=== PATIENT | female | born 1945 | race Caucasian/White ===

== ENCOUNTER → 2018-04-01 | Outpatient (CLI) | payer MEDICARE, OTHER ==
--- NOTE | 2018-04-05 11:21 | MM ---
Reason for exam: screening (asymptomatic). Last mammogram was performed 3 years and 4 months ago. History: Patient is postmenopausal and has history of other cancer at age 63. Took estrogen for 10 years. Physical Findings: A clinical breast exam by your physician is recommended on an annual basis and results should be correlated with mammographic findings. MG 3D Screening Mammo W/Cad Bilateral CC and MLO view(s) were taken. Prior study comparison: November 22, 2014, bilateral MG screening mammo w CAD. October 13, 2013, bilateral digital screening mammo w/CAD. There are scattered fibroglandular densities. Finding #1: There is a typically benign circumscribed round retroareolar stable masses. Finding #2: There are typically benign calcifications in both breasts, greater in the right breast. No suspicious abnormality. No significant changes in finding since November 22, 2014 and October 13, 2013. ASSESSMENT: Benign, BI-RAD 2 RECOMMENDATION: Routine screening mammogram of both breasts in 1 year.
== END | disposition home or self-care (01) ==
LOC: RADMAMWWP 13:09
PROVIDERS: ATTEND Family Medicine
DX: Z12.31 Encounter for screening mammogram for malignant neoplasm of breast (principal)
CPT/HCPCS: 77063; 77067

== ENCOUNTER 2021-07-02 10:15 | Day surgery (SDC) | payer MEDICARE, OTHER ==
[2021-06-28 11:09] VITALS: BMI 27.4
[~2021-07-02 10:15] MED LIST: LACTATED RINGERS 1,000 ML IV SCH; LIDOCAINE 1% (10MG/ML) FOR IV START INTRADERMA PRN
[2021-07-02 10:53] VITALS: RESP 16; TEMP 98
[2021-07-02] MEDS ORDERED: PROPOFOL 10 MG/ML 20 ML VIAL IV ONE (11:04)
--- NOTE | 2021-07-02 11:08 | P.GSHP ---
History of Present Illness H&P Date: 07/02/21 Chief Complaint: Rectal bleeding 76-year-old female here today for colonoscopy. 2 months ago patient had episode of gastroenteritis symptoms with rectal bleeding. Symptoms lasted for about 4 days. No recurrent symptoms. Last colonoscopy 6 years ago. Small hyperplastic polyp seen at that time. Family history of colon cancer in a cousin and uncle. Past Medical History Past Medical History: Cancer, GI Bleed, Hyperlipidemia, Hypertension Additional Past Medical History / Comment(s): squamous skin cancer History of Any Multi-Drug Resistant Organisms: None Reported Additional Past Surgical History / Comment(s): fallopian surgery, colonoscopy Past Anesthesia/Blood Transfusion Reactions: No Reported Reaction Smoking Status: Never smoker Medications and Allergies Home Medications Medication Instructions Recorded Confirmed Type Cholecalciferol (Vitamin D3) 125 mcg PO SUTUTHSA 06/28/21 07/02/21 History [Vitamin D3 (125 MCG = 5,000 IU)] Cholecalciferol [Vitamin D3 (25 25 mcg PO MOWEFR 06/28/21 07/02/21 History Mcg = 1000 Iu)] Losartan/Hydrochlorothiazide 1 tab PO DAILY 06/28/21 07/02/21 History [Losartan-Hctz 100-25 mg Tab] Metoprolol Succinate (ER) [Toprol 50 mg PO HS 06/28/21 07/02/21 History Xl] Simvastatin [Zocor] 40 mg PO HS 06/28/21 07/02/21 History Allergies Allergy/AdvReac Type Severity Reaction Status Date / Time No Known Allergies Allergy Verified 06/28/21 10:45 Surgical - Exam Vital Signs Temp Pulse Resp BP Pulse Ox 98.0 F 98 16 188/84 97 07/02/21 10:43 07/02/21 10:43 07/02/21 10:43 07/02/21 10:43 07/02/21 10:43 Physical exam: General: Well-developed, well-nourished HEENT: Normocephalic, sclerae nonicteric Abdomen: Nontender, nondistended Extremities: No edema Neuro: Alert and oriented Assessment and Plan (1) Rectal bleeding Narrative/Plan: Will proceed with colonoscopy Current Visit: Yes Status: Acute Code(s): K62.5 - HEMORRHAGE OF ANUS AND RECTUM SNOMED Code(s): 32552407
--- NOTE | 2021-07-02 11:18 | P.PCN ---
Date of Procedure: 07/02/21 Procedure(s) Performed: PREOPERATIVE DIAGNOSIS: Rectal bleeding POSTOPERATIVE DIAGNOSIS: Cecal polyp 2 PROCEDURE: Colonoscopy with snare polypectomy ANESTHESIA: MAC SURGEON: Cj Mckeon M.D. SPECIMENS: Cecal polyps ENDOSCOPIC PROCEDURE: The patient was placed on the endoscopy table in the left decubitus position. The Olympus colonoscope was inserted into the anus and passed under direct visualization to the base of the cecum. The appendiceal orifice was visualized. From that point the scope was slowly withdrawn inspecting all surfaces carefully. There were 2 small polyps at the base of the cecum. These were removed using the snare with cautery technique. The remainder of the cecum, ascending, transverse, descending, sigmoid and rectum appeared normal. There was no visible diverticulosis noted. Digital rectal examination was normal. The patient was taken to the recovery room in stable condition per anesthesia guidelines. RECOMMENDATIONS: Resume diet. Await biopsy results. Follow colonoscopy pending pathology results.
[2021-07-02 11:25] VITALS: PULSE 75
[2021-07-02 11:39] VITALS: BP 144/76
== END 2021-07-02 12:15 | disposition home or self-care (01) ==
LOC: ORWHC2ENDO 10:15
PROVIDERS: ATTEND Surgery
DX: K63.5 Polyp of colon (principal); K62.5 Hemorrhage of anus and rectum; E78.5 Hyperlipidemia, unspecified; I10 Essential (primary) hypertension; F41.9 Anxiety disorder, unspecified; Z79.899 Other long term (current) drug therapy; Z85.828 Personal history of other malignant neoplasm of skin; Z87.2 Personal history of diseases of the skin and subcutaneous tissue; Z80.0 Family history of malignant neoplasm of digestive organs
CPT/HCPCS: 88305; 45385; J2704

== ENCOUNTER → 2021-11-28 | Outpatient (CLI) | payer MEDICARE, OTHER ==
--- NOTE | 2021-11-29 09:12 | MM ---
Reason for exam: screening (asymptomatic). Last mammogram was performed 3 years and 8 months ago. History: Patient is postmenopausal and has history of other cancer at age 63. Took estrogen for 10 years. Physical Findings: A clinical breast exam by your physician is recommended on an annual basis and results should be correlated with mammographic findings. MG 3D Screening Mammo W/Cad Bilateral CC and MLO view(s) were taken. Prior study comparison: April 01, 2018, bilateral MG 3d screening mammo w/cad. November 22, 2014, bilateral MG screening mammo w CAD. There are scattered fibroglandular densities. Focal asymmetry upper outer left breast zone C. ASSESSMENT: Incomplete: need additional imaging evaluation, BI-RAD 0 RECOMMENDATION: Special view mammogram of the left breast. If lesion persists on supplemental views, image directed ultrasound is recommended. [facility] will attempt to contact patient to return for supplemental views and ultrasound if indicated.
== END | disposition home or self-care (01) ==
LOC: RADMAMWWP 14:32
PROVIDERS: ATTEND Family Medicine
DX: Z12.31 Encounter for screening mammogram for malignant neoplasm of breast (principal); Z78.0 Asymptomatic menopausal state
CPT/HCPCS: 77063; 77067

== ENCOUNTER → 2021-12-04 | Outpatient (CLI) | payer MEDICARE, OTHER ==
--- NOTE | 2021-12-04 13:46 | MM ---
Reason for exam: additional evaluation requested from abnormal screening. Last mammogram was performed less than 1 month ago. History: Patient is postmenopausal and has history of other cancer at age 63. Took estrogen for 10 years. Physical Findings: Nurse did not find any significant physical abnormalities on exam. MG 3D Work Up W/Cad LT Spot compression CC, spot compression MLO, and LM view(s) were taken of the left breast. Prior study comparison: November 28, 2021, bilateral MG 3d screening mammo w/cad. April 01, 2018, bilateral MG 3d screening mammo w/cad. Nodular density upper outer quadrant left breast 12.7cm from nipple measuring 1cm. These results were verbally communicated with the patient and result sheet given to the patient on 12/04/21. ASSESSMENT: Incomplete: need additional imaging evaluation, BI-RAD 0 RECOMMENDATION: Ultrasound of the left breast.
--- NOTE | 2021-12-04 13:48 | USB ---
Reason for exam: additional evaluation requested from abnormal screening. History: Patient is postmenopausal and has history of other cancer at age 63. Took estrogen for 10 years. US Breast Workup Limited LT Left limited breast ultrasound including focal area of concern, retroareolar and axilla demonstrates a 6 x 5 x 9mm irregular, solid, hypoechoic, vascular lesion at 3 o'clock. These results were verbally communicated with the patient and result sheet given to the patient on 12/04/21. ASSESSMENT: Suspicious, BI-RAD 4 RECOMMENDATION: Ultrasound core biopsy of the left breast. Called Dr. Slaughter office with mammographic findings and has scheduled an appointment for the patient for 01/15/22 at 4:[address] Resendez. Biopsy scheduled for 12/18/21 at 1:00. PRELIMINARY REPORT CALLED AND FAXED TO DR. RESENDEZ ON 12/04/21.
== END | disposition home or self-care (01) ==
LOC: RADMAMWWP 10:20
PROVIDERS: ATTEND Family Medicine
DX: R92.8 Other abnormal and inconclusive findings on diagnostic imaging of breast (principal); Z78.0 Asymptomatic menopausal state
CPT/HCPCS: 77065; 76642; G0279; 77061

== ENCOUNTER → 2021-12-18 | Day surgery (SDC) | payer MEDICARE, OTHER ==
[2021-12-18 12:16] VITALS: RESP 16
[2021-12-18 14:10] VITALS: BP 134/76; PULSE 76; TEMP 98.6
--- NOTE | 2021-12-18 18:33 | USB ---
EXAMINATION TYPE: US biopsy breast VAD LT DATE OF EXAM: 12/18/2021 CLINICAL HISTORY: R92.8 ABN MAMMO. TECHNIQUE: Ultrasound guided vaccuum assisted core biopsy of left breast. COMPARISON: Ultrasound 12/04/2021 FINDINGS: The ultrasound guided core biopsy procedure was explained to the patient. The risks, benef its, alternatives were discussed. An informed consent was then obtained. Timeout was performed. The patient was placed in supine positioning for imaging and for the procedure. The overlying skin w as prepped with betadine and sterilely draped in usual sterile fashion. Lidocaine 1% was used as ane sthetic into the skin and deeper breast tissue up to area of concern in the breast. A small skin zenia k was made with surgical scalpel. Under ultrasound guidance, a 12-gauge vacuum assisted biopsy device was used to obtain 4 core samples . A biopsy clip was left in lesion. Wing clip was placed. Good hemostasis was obtained with direct pressure. Discharge instructions were discussed with the pa lizz. The patient will follow up with the referring physician for results. Postprocedure mammogram: The patient was transferred to mammography for physician ordered post proced ure mammogram for clip placement verification. The clip is in the expected region of the biopsy. The patient tolerated the procedure well without any immediate complication. The patient was dischar ged to home in stable condition. IMPRESSION: 1. Successful ultrasound guided biopsy left breast. Recommendations: 1. Recommendations are pending pathology results.
== END | disposition home or self-care (01) ==
LOC: RADUSWWP 11:57
PROVIDERS: ATTEND Surgery
DX: C50.912 Malignant neoplasm of unspecified site of left female breast (principal); R92.8 Other abnormal and inconclusive findings on diagnostic imaging of breast
CPT/HCPCS: 77065; 19083; A4648; J2001; 88305; 88341; 88342

== ENCOUNTER 2022-01-10 07:04 | Day surgery (SDC) | payer MEDICARE, OTHER ==
[~2022-01-10 07:04] MED LIST changes: +ACETAMINOPHEN TAB 500 MG TAB PO PRN; +DEXAMETHASONE SOD PHOSPHATE 4 MG/ML 1 ML VIAL IV ONE; +HEPARIN SODIUM,PORCINE/PF 5,000 UNIT/0.5 ML SYRINGE SQ PRN; +HYDROmorphone 0.5 MG/0.5 ML SYRINGE IVP PRN; -LIDOCAINE 1% (10MG/ML) FOR IV START INTRADERMA PRN; +MIDAZOLAM 2 MG/2 ML VIAL IV PRN; +ONDANSETRON 4 MG/2 ML VIAL IVP ONE; +Pre Op ABX Message 1 EACH MISC MISCELLANE ONE
--- NOTE | 2022-01-10 07:37 | P.GSHP ---
History of Present Illness H&P Date: 01/10/22 76-year-old female underwent recent screening mammogram was found to have a 1 cm lesion 3:00 left breast. Ultrasound confirmed a 9 mm mass area patient is asymptomatic. 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 Or today for elective resection. Past Medical History Past Medical History: Cancer, Hyperlipidemia, Hypertension Additional Past Medical History / Comment(s): squamous skin cancer History of Any Multi-Drug Resistant Organisms: None Reported Additional Past Surgical History / Comment(s): fallopian surgery, colonoscopy, gangilion cyst removed from wrist Past Anesthesia/Blood Transfusion Reactions: No Reported Reaction Past Psychological History: Anxiety Smoking Status: Never smoker Past Alcohol Use History: Occasional Past Drug Use History: None Reported - Past Family History Mother Family Medical History: No Reported History Father Family Medical History: Cancer Additional Family Medical History / Comment(s): prostate Medications and Allergies Home Medications Medication Instructions Recorded Confirmed Type Cholecalciferol (Vitamin D3) 125 mcg PO SUTUTHSA 06/28/21 01/09/22 History [Vitamin D3 (125 MCG = 5,000 IU)] Cholecalciferol [Vitamin D3 (25 25 mcg PO MOWEFR 06/28/21 01/09/22 History Mcg = 1000 Iu)] Losartan/Hydrochlorothiazide 1 tab PO QAM 06/28/21 01/09/22 History [Losartan-Hctz 100-25 mg Tab] Metoprolol Succinate (ER) [Toprol 50 mg PO HS 06/28/21 01/09/22 History Xl] Simvastatin [Zocor] 40 mg PO HS 06/28/21 01/09/22 History ALPRAZolam [Xanax] 0.5 mg PO DAILY PRN 01/09/22 01/09/22 History Fluorouracil [Efudex] 1 applic TOPICAL DIRECTED PRN 01/09/22 01/09/22 History cycloSPORINE [Restasis] 1 drop BOTH EYES DAILY PRN 01/09/22 01/09/22 History Allergies Allergy/AdvReac Type Severity Reaction Status Date / Time No Known Allergies Allergy Verified 01/10/22 07:20 Surgical - Exam Vital Signs Temp Pulse Resp BP Pulse Ox 97.8 F 79 16 124/56 98 01/10/22 07:22 01/10/22 07:22 01/10/22 07:22 01/10/22 07:22 01/10/22 07:22 Physical exam: General: Well-developed, well-nourished HEENT: Normocephalic, sclerae nonicteric Right breast: No masses, no adenopathy Left breast: No masses, no adenopathy, recent scar noted Abdomen: Nontender, nondistended Extremities: No edema Neuro: Alert and oriented Assessment and Plan (1) Breast cancer, left Narrative/Plan: 76-year-old female with recently diagnosed stage I left breast cancer. Patient scheduled today for elective left breast wire localization lumpectomy with sentinel lymph node biopsy and injection. Risks of bleeding, infection, scarring, possible need for further surgery, recurrence, seroma, nerve injury, numbness, lymphedema reviewed. She understands and wishes to proceed. Current Visit: Yes Status: Acute Code(s): C50.912 - MALIGNANT NEOPLASM OF UNSPECIFIED SITE OF LEFT FEMALE BREAST SNOMED Code(s): 174730022
--- NOTE | 2022-01-10 07:38 | P.NAPBC ---
NAPBC Queries - NAPBC Queries Was patient's case review presented at [facility] tumor board? If no, comment.: Yes (About) Was patient's pathology reviewed at [facility]? If no, comment.: Yes Was breast conservation surgery offered? If no, comment.: Yes Was sentinel node biopsy offered? If no, comment.: Yes Was diagnosis confirmed by percutaneous core biopsy? If no, comment.: Yes Is patient mastectomy patient?: No Was a preop referral to reconstructive surgeon offered?: Yes Clinical Stage: 1
[2022-01-10] MEDS ORDERED: LIDOCAINE 1% INJ 10MG/ML (20 ML MDV) SQ ONE (08:11)
--- NOTE | 2022-01-10 08:56 | NM ---
EXAMINATION TYPE: NM sentinel node injection DATE OF EXAM: 01/10/2022 COMPARISON: NONE HISTORY: Left-sided breast cancer. TECHNIQUE AND FINDINGS: The procedure of sentinel lymph node injection was explained to the patient. The benefits, alternatives, and risks were discussed. An informed consent was then obtained. Overlying skin is cleaned with sterile alcohol. Following this, 500 uCi Tc99m Tilmanocept was inject ed in the upper outer aspect of the left nipple intradermally. The patient tolerated the procedure well without any immediate complication. The patient was kept in the radiology department for short stay after the procedure and then taken to surgery for surgical p rocedure what is presumed intraoperative gamma probe will be used for sentinel lymph node detection. IMPRESSION: Left breast radiotracer injection for sentinel node localization as above.
[2022-01-10] MEDS ORDERED: fentaNYL (PF) 50 MCG/ML 2 ML AMP ONE (09:08)
[2022-01-10] MEDS ORDERED: LIDOCAINE 1% INJ 10MG/ML (20 ML MDV) ONE (09:08)
[2022-01-10] MEDS ORDERED: PROPOFOL 10 MG/ML 20 ML VIAL IV ONE (09:08)
[2022-01-10] MEDS ORDERED: SODIUM CHLORIDE 0.9% 50 ML with ceFAZolin 2,000 MG IV ONE ×2 (09:12)
[2022-01-10] MEDS ORDERED: METHYLENE BLUE 50 MG/10 ML AMPUL INJ ONE (09:30)
[2022-01-10] MEDS ORDERED: BUPIVACAIN-EPI 0.25%-1:200,000 30 ML VIAL SQ ONE ×2 (09:40→10:36)
[2022-01-10 10:53] VITALS: TEMP 97
--- NOTE | 2022-01-10 11:09 | MM ---
EXAMINATION TYPE: MG pre op needle loc LT, MG surgical specimen LT DATE OF EXAM: 01/10/2022 COMPARISON: Mammogram December 18, 2021 CLINICAL HISTORY: Biopsy-proven cancer December 18. TECHNIQUE: Needle localization with wire placement and surgical excision of area of concern in the left breast. FINDINGS: The procedure of needle localization with wire placement and than surgical excision was explained to the patient. Benefits, alternatives, and risks were discussed. An informed consent was then obtained. The shortest pathway for procedure was chosen. Shortest pathway was lateral to medial approach. The overlying skin was prepped and draped in usual sterile fashion. Lidocaine is used as anesthetic into the skin and subcutaneous tissue up to the area of concern. A 5 cm needle was used. It was placed via a lateral to medial approach under mammographic guidance. Subsequent 90 degrees mammogram show the needle to be in satisfactory position relative to the targeted area. At this point, wire was placed and the needle was withdrawn. The wire was fixed to patient's skin. Images were marked for surgeon. The patient tolerated the procedure well without any immediate complication. The patient was kept in the radiology department for short stay after the procedure and then taken to surgery for surgical excision. Targeted biopsy clip and wire are identified in specimen mammogram. The patient was kept in hospital for short stay after the procedure and then discharged home in stable condition. IMPRESSION: Successful, uncomplicated needle localization with wire placement and surgical excision of targeted biopsy clip in the left breast, full pathology results to follow. Pathology Results: Malignant A. SENTINEL LYMPH NODES LEFT BREAST: Three lymph nodes negative for metastasis. CK7 immunoperoxidase stain is confirmatory (controls appropriate). B. LEFT BREAST, NEW INFERIOR MARGIN, EXCISION: Benign breast tissue. C. 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 DCIS closely approximates the inferior margin multifocally (DCIS is much less than 1 mm from the inferior margin multifocally). See Surgical Pathology Cancer Case Summary. Recommendation Surgical consult of the left breast. CALIXTOD
[2022-01-10] MEDS ORDERED: HYDROcodone/APAP 5-325MG 1 EACH TAB PO PRN (11:13)
[2022-01-10] MEDS ORDERED: NALOXONE 0.4 MG/ML 1 ML VIAL IV PRN (11:13)
--- NOTE | 2022-01-10 11:19 | P.OP ---
Date of Procedure: 01/10/22 Procedure(s) Performed: PREOPERATIVE DIAGNOSIS: Left breast cancer POSTOPERATIVE DIAGNOSIS: Same PROCEDURE: Right Breast wire localization lumpectomy with sentinel lymph node biopsy SURGEON: Linda EBL: Minimal ANESTHESIA: General COMPLICATIONS: None OPERATIVE PROCEDURE: Patient was placed on the operating room table in the supine position. 2 mL of methylene blue was injected into the subareolar space. The breast was then massaged for 5 minutes. The breast was prepped and draped in usual sterile fashion. The left axilla was addressed at that time. The hot spot in the right axilla was identified. A small curvilinear incision was made using the scalpel. Dissection down through the subcutaneous tissues took place using electrocautery. Using the neoprobe I identified a total of 5 sentinel lymph nodes. None of these were blue in color. These had benign exam characteristics. These were all removed and sent to pathology for permanent sectioning. The surgical site was inspected and no bleeding was seen. The subcutaneous tissues were closed using 3-0 Vicryl sutures. The skin was closed using 4-0 Monocryl sutures. The wire entrance site was then addressed. This was present at the 3:00 location. A curvilinear incision was made adjacent to the wire entrance site. I followed the wire down into the breast tissue. An adequate lumpectomy specimen then took place around the wire. Margins of 1.5-2 cm worth attempted to be achieved. Palpation of the specimen suggested that the inferior and medial margins were somewhat close. I took an additional margin medially and inferiorly and these margins were painted the appropriate color opposite of the new margin side. The initial specimen was also painted the appropriate 6 colors. Clips were used to identify the lumpectomy cavity. The clip was confirmed to be within the lumpectomy specimen by radiology. The subcutaneous tissues were closed using 3-0 Vicryl sutures. The skin was closed using a running 4-0 Monocryl stitch. Skin glue was then applied. DISPOSITION: Stable to recovery room
[2022-01-10 11:28] VITALS: RESP 16
[2022-01-10] MEDS ORDERED: traMADol 50 MG TAB ONE (11:51)
[2022-01-10 11:53] VITALS: BP 120/69; PULSE 64
[2022-01-10] MEDS ORDERED: traMADol 50 MG TAB PO ONE (11:55)
== END 2022-01-10 12:36 | disposition home or self-care (01) ==
LOC: OR 07:04
PROVIDERS: ATTEND Surgery
DX: D05.12 Intraductal carcinoma in situ of left breast (principal); E78.5 Hyperlipidemia, unspecified; I10 Essential (primary) hypertension; Z87.19 Personal history of other diseases of the digestive system; Z98.890 Other specified postprocedural states; Z85.828 Personal history of other malignant neoplasm of skin; F41.9 Anxiety disorder, unspecified; Z79.899 Other long term (current) drug therapy; Z80.42 Family history of malignant neoplasm of prostate
CPT/HCPCS: 19301; 38525; 88342; 88307; 76098; 19281; 38792; C1819; A9520; J1100; J2405; J0690; J2001; J3010; J2704; Q9968; J1170; J1644

== ENCOUNTER → 2022-02-03 | Outpatient (CLI) | payer MEDICARE, OTHER ==
--- NOTE | 2022-02-04 07:50 | ECHOF ---
Referral Reason:Z01.818 MEASUREMENTS -------- HEIGHT: 157.5 cm WEIGHT: 68.5 kg BP: RVIDd: 2.9 cm (< 3.3) IVSd: 1.1 cm (0.6 - 1.1) LVIDd: 3.6 cm (3.9 - 5.3) LVPWd: 1.3 cm (0.6 - 1.1) IVSs: 1.8 cm LVIDs: 1.7 cm LVPWs: 1.7 cm LAESV Index (A-L): 24.84 ml/m Ao Diam: 3.3 cm (2.0 - 3.7) AV Cusp: 2.2 cm (1.5 - 2.6) LA Diam: 3.1 cm (2.7 - 3.8) MV E Dino: 0.65 m/s MV DecT: 147 ms MV A Dino: 0.97 m/s MV E/A Ratio: 0.67 RAP: 5.00 mmHg RVSP: 36.81 mmHg FINDINGS -------- Sinus rhythm. This was a technically adequate study. The left ventricular size is normal. There is mild concentric left ventricular hypertrophy. Overa ll left ventricular systolic function is normal with, an EF between 55 - 60 %. The diastolic fillin g pattern is normal for the age of the patient 10.41. The right ventricle is normal in size. Normal LA size by volume 22+/-6 ml/m2. The right atrial size is normal. Mobile interatrial septum. The aortic valve is trileaflet and appears structurally normal. There is mild aortic valve sclerosi s. There is no evidence of aortic regurgitation. There is no evidence of aortic stenosis. No mitral regurgitation. Mild tricuspid regurgitation present. There is borderline pulmonary artery hypertension. The righ t ventricular systolic pressure, as measured by Doppler, is 36.81mmHg. There is no pulmonic regurgitation present. The aortic root size is normal. Normal inferior vena cava with normal inspiratory collapse consistent with estimated right atrial pre ssure of 5 mmHg. There is no pericardial effusion. CONCLUSIONS -------- 1. The left ventricular size is normal. 2. There is mild concentric left ventricular hypertrophy. 3. Overall left ventricular systolic function is normal with, an EF between 55 - 60 %. 4. The diastolic filling pattern is normal for the age of the patient 10.41 5. Mobile interatrial septum. 6. There is mild aortic valve sclerosis. 7. Mild tricuspid regurgitation present. 8. There is borderline pulmonary artery hypertension. 9. The right ventricular systolic pressure, as measured by Doppler, is 36.81mmHg. [employer] ARCHITECT: Heather Price RDCS
== END | disposition home or self-care (01) ==
LOC: RADECHMAIN 14:57
PROVIDERS: ATTEND Internal Medicine Hematology & Oncology
DX: Z01.818 Encounter for other preprocedural examination (principal); I08.2 Rheumatic disorders of both aortic and tricuspid valves; I27.21 Secondary pulmonary arterial hypertension
CPT/HCPCS: 93306

== ENCOUNTER → 2022-05-28 | Outpatient (CLI) | payer MEDICARE, OTHER ==
--- NOTE | 2022-05-29 15:04 | CA ---
Transthoracic Echo Report Name: Kimmie Rendon Age: 77 Gender: F : 1945 Exam Date: 05/28/2022 11:35 Exam Location: [facility] Ht (in): 52 Wt (lb): 153 Ordering Physician: Caro Stevens MD Attending/Referring Phys: Tray Drier Operator Mira Tadeo RDCS Procedure CPT: Indications: Z01.818 Chemo Cardiac Hx: Technical Quality: Good Contrast 1: Total Dose (mL): Contrast 2: Total Dose (mL): MEASUREMENTS (Male / Female) Normal Values 2D ECHO LA Volume 58.7 cm??? 18 - 58 / 22 - 52 cm??? M-MODE Aortic Root Diameter MM 3.2 cm LA Systolic Diameter MM 3.3 cm LA Ao Ratio MM 1.0 MV E Point Septal Separation 0.7 cm AV Cusp Separation MM 1.8 cm DOPPLER MV Area PHT 3.8 cm??? Mitral E Point Velocity 61.3 cm/s Mitral A Point Velocity 100.7 cm/s Mitral E to A Ratio 0.6 MV Deceleration Time 200.7 ms MV E' Velocity 4.7 cm/s Mitral E to MV E' Ratio 13.1 TR Peak Velocity 219.2 cm/s TR Peak Gradient 19.2 mmHg Right Ventricular Systolic Press 24.2 mmHg FINDINGS Left Ventricle Left ventricular ejection fraction is estimated at 50-55%. Right Ventricle Normal right ventricular size and function. Right Atrium Normal right atrial size. Left Atrium Mildly increased left atrial volume. Mitral Valve Structurally normal mitral valve. Mild mitral regurgitation. Aortic Valve Trileaflet aortic valve. Tricuspid Valve Structurally normal tricuspid valve. Mild tricuspid regurgitation. Pulmonic Valve Pulmonic valve not well visualized. Pericardium Normal pericardium. Aorta Normal size aortic root and proximal ascending aorta. CONCLUSIONS Normal LV systolic function, ejection fraction greater than 55% Left atrial enlargement Previewed by: Dr. Romeo Strong MD (Electronically Signed) Final Date: 29 May 2022 15:03
== END | disposition home or self-care (01) ==
LOC: RADECHMAIN 11:26
PROVIDERS: ATTEND Internal Medicine Hematology & Oncology
DX: Z01.818 Encounter for other preprocedural examination (principal); I08.3 Combined rheumatic disorders of mitral, aortic and tricuspid valves
CPT/HCPCS: 93306

== ENCOUNTER 2022-07-22 09:49 | Day surgery (SDC) | payer MEDICARE, OTHER ==
[~2022-07-22 09:49] MED LIST changes: -ACETAMINOPHEN TAB 500 MG TAB PO PRN; -DEXAMETHASONE SOD PHOSPHATE 4 MG/ML 1 ML VIAL IV ONE; -HEPARIN SODIUM,PORCINE/PF 5,000 UNIT/0.5 ML SYRINGE SQ PRN; -HYDROmorphone 0.5 MG/0.5 ML SYRINGE IVP PRN; -MIDAZOLAM 2 MG/2 ML VIAL IV PRN; -ONDANSETRON 4 MG/2 ML VIAL IVP ONE; -Pre Op ABX Message 1 EACH MISC MISCELLANE ONE
[2022-07-22] MEDS ORDERED: LACTATED RINGERS 1,000 ML IV ONE (10:19)
[2022-07-22 10:31] VITALS: TEMP 96.2
[2022-07-22] MEDS ORDERED: LIDOCAINE 2% INJ 20 MG/ML (2 ML VIAL) ONE (10:49)
[2022-07-22] MEDS ORDERED: PROPOFOL 10 MG/ML 20 ML VIAL IV ONE (10:49)
--- NOTE | 2022-07-22 10:52 | P.GSHP ---
History of Present Illness H&P Date: 07/22/22 Chief Complaint: Colon cancer screening, GERD 77-year-old female known to our service. Patient with personal history of breast cancer. 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 She was advised to have upper and lower endoscopy for that reason. Patient has a significant family of colon cancer in her family. Mild reflux symptoms that time. Past Medical History Past Medical History: Cancer, Hyperlipidemia, Hypertension Additional Past Medical History / Comment(s): squamous skin cancer, breast cancer 2021-surg, chemo & radiation, brain fog due to recent chemo, hx. colon polyps, has PMS2 gene History of Any Multi-Drug Resistant Organisms: None Reported Past Surgical History: Breast Surgery, Orthopedic Surgery Additional Past Surgical History / Comment(s): fallopian surgery for fertility, colonoscopy, ganglion cyst removed from wrist, left breast lumpectomy Past Anesthesia/Blood Transfusion Reactions: No Reported Reaction, Family History of Problems w/ Anesthesia Additional Past Anesthesia/Blood Transfusion Reaction / Comment(s): mother had some sort of problem during a surgery w/anesthesia Smoking Status: Never smoker - Past Family History Mother Family Medical History: No Reported History Father Family Medical History: Cancer Additional Family Medical History / Comment(s): prostate Medications and Allergies Home Medications Medication Instructions Recorded Confirmed Type Cholecalciferol [Vitamin D3 (25 3,000 unit PO DAILY 06/28/21 07/22/22 History Mcg = 1000 Iu)] Losartan/Hydrochlorothiazide 1 tab PO QAM 06/28/21 07/22/22 History [Losartan-Hctz 100-25 mg Tab] Metoprolol Succinate (ER) [Toprol 50 mg PO HS 06/28/21 07/22/22 History Xl] Simvastatin [Zocor] 40 mg PO HS 06/28/21 07/22/22 History ALPRAZolam [Xanax] 0.5 mg PO DAILY PRN 01/09/22 07/22/22 History cycloSPORINE [Restasis] 1 drop BOTH EYES DAILY PRN 01/09/22 07/22/22 History Escitalopram [Lexapro] 10 mg PO DAILY 07/18/22 07/22/22 History Letrozole [Femara] 2.5 mg PO DAILY 07/18/22 07/22/22 History Levomefolate Calcium 7.5 mg PO DAILY 07/18/22 07/22/22 History [l-Methylfolate Calcium] Allergies Allergy/AdvReac Type Severity Reaction Status Date / Time No Known Allergies Allergy Verified 07/22/22 10:27 Surgical - Exam Vital Signs Temp Pulse Resp BP Pulse Ox 96.2 F L 65 14 127/62 94 L 07/22/22 10:29 07/22/22 10:29 07/22/22 10:29 07/22/22 10:29 07/22/22 10:29 Physical exam: General: Well-developed, well-nourished HEENT: Normocephalic, sclerae nonicteric Abdomen: Nontender, nondistended Extremities: No edema Neuro: Alert and oriented Assessment and Plan (1) Colon cancer screening Narrative/Plan: Will proceed with upper and lower endoscopy Current Visit: Yes Status: Acute Code(s): Z12.11 - ENCOUNTER FOR SCREENING FOR MALIGNANT NEOPLASM OF COLON SNOMED Code(s): 472691018
--- NOTE | 2022-07-22 11:15 | P.PCN ---
Date of Procedure: 07/22/22 Procedure(s) Performed: PREOPERATIVE DIAGNOSIS: Colon cancer screening, GERD POSTOPERATIVE DIAGNOSIS: Small hiatal hernia, mild gastritis, diverticulosis, sigmoid colon polyp PROCEDURE: 1. EGD with biopsy 2. Colonoscopy with snare polypectomy ANESTHESIA: MAC SURGEON: Cj Mckeon M.D. SPECIMENS: Antrum, polyp ENDOSCOPIC PROCEDURE: The patient was on the endoscopy table in the left decubitus position. The Olympus gastroscope was inserted into the oropharynx and passed under direct visualization to the region of the third portion of the duodenum. From that point the scope was slowly withdrawn inspecting all surfaces carefully. There were no neoplastic inflammatory or polypoid lesions throughout the duodenum. The pylorus was widely patent. The stomach was carefully inspected. There was mild gastritis. A biopsy of the antrum took place to rule out H. pylori. Retroflexion revealed a small sliding hiatal hernia. The esophagus was then carefully examined. There were no neoplastic inflammatory or polypoid lesions throughout the visualized esophagus. The patient was kept on the endoscopy table in the left decubitus position. The Olympus colonoscope was inserted into the anus and passed under direct visualization to the base of the cecum. The appendiceal orifice was visualized. From that point the scope was slowly withdrawn inspecting all surfaces carefully. There were no neoplastic inflammatory or polypoid lesions throughout the cecum, ascending, transverse, and descending colon. In the sigmoid colon a small polyp was seen and removed using the snare cautery technique. The remainder of the sigmoid and rectum appeared normal. There was mild left-sided diverticulosis. Digital rectal examination was normal. The patient was taken to the recovery room in stable condition per anesthesia guidelines. RECOMMENDATIONS: Await biopsy results. Repeat endoscopy for recommendations of genetic counselor.
[2022-07-22 11:17] VITALS: RESP 16
[2022-07-22 12:04] VITALS: BP 115/64; PULSE 59
== END 2022-07-22 12:30 | disposition home or self-care (01) ==
LOC: ORWHC2ENDO 09:49
PROVIDERS: ATTEND Surgery
DX: K29.50 Unspecified chronic gastritis without bleeding (principal); K63.5 Polyp of colon; K57.30 Diverticulosis of large intestine without perforation or abscess without bleeding; E78.5 Hyperlipidemia, unspecified; I10 Essential (primary) hypertension; Z85.3 Personal history of malignant neoplasm of breast; Z85.828 Personal history of other malignant neoplasm of skin; Z79.890 Hormone replacement therapy; Z79.899 Other long term (current) drug therapy
CPT/HCPCS: 88305; 45385; 43239; J2704; J2001

== ENCOUNTER → 2022-08-25 | Outpatient (CLI) | payer MEDICARE, OTHER | END | disposition home or self-care (01) | LOC: LABPAT 15:03 | PROVIDERS: ATTEND Obstetrics & Gynecology | DX: Z53.9 Procedure and treatment not carried out, unspecified reason (principal) | CPT/HCPCS: 80051; 82565; 84520; 85025; 86850; 86900; 86901; 87086; 93005 ==

== ENCOUNTER → 2022-08-27 | Outpatient (CLI) | payer MEDICARE, OTHER ==
--- NOTE | 2022-08-27 11:30 | BD ---
EXAMINATION TYPE: Axial Bone Density DATE OF EXAM: 08/27/2022 COMPARISON: 11/22/2014 CLINICAL HISTORY: 77 years year old Female. ICD-10 CODE: C50.412 breast ca Height: 61 IN Weight: 152 LBS FRAX RISK QUESTIONS: Family History (Parent hip fracture): YES FATHER; YES MOTHER RISK FACTORS HISTORY OF: Active: YES Postmenopausal woman: AGE 43 Lost more than 2 inches in height since high school: YES 3" MEDICATIONS: Osteoporosis Medications: Which medication: Evista How Long: A COUPLE YEARS Additional Medications: BLOOD PRESSURE MEDS, CHOLESTEROL, Additional History: BREAST CANCER WITH CHEMO AND RADIATION EXAM MEASUREMENTS: Bone mineral densitometry was performed using the Lytro System. Bone mineral density as measured about the Lumbar spine is: ----- L1-L4(G/cm2): 1.277 T Score Values are as follows: ----- L1: 0.7 ----- L2: 0.9 ----- L3: 0.8 ----- L4: 0.7 ----- L1-L4: 0.8 Bone mineral density has: Increased 0.1% since study of: 11/22/2014 Bone mineral density about the R hip (g/cm2): 0.842 Bone mineral density about the L hip (g/cm2): 0.827 T Score values are as follows: -----R Neck: -1.4 -----L Neck: -1.5 -----R Total: -0.5 -----L Total: -0.8 Bone mineral density has: Decreased -5.8% since study of: 11/22/2014 FRAX%s: The graph provided illustrates a 23.0 chance for a major osteoporotic fx and a 12.9 chance fo r the hips probability for fx in 10 years time. IMPRESSION: Osteopenia (T Score between -2.5 and -1). There is slightly increased risk of fracture and the patient may be considered for treatment. Re-Screen 2-5 years. NOTE: T-SCORE=SD OF THE YOUNG ADULT MEAN.
--- NOTE | 2022-08-27 16:55 | CA ---
Transthoracic Echo Report Name: Kimmie Rendon Age: 77 Gender: F : 1945 Exam Date: 08/27/2022 11:46 Exam Location: [facility] Ht (in): 63 Wt (lb): 150 Ordering Physician: Caro Stevens MD Attending/Referring Phys: Time Signal Wirer Kelsey Portillo RDCS Procedure CPT: Indications: R91.1 SOLITARY PULMONARY NODULE Cardiac Hx: Technical Quality: Good Contrast 1: Total Dose (mL): Contrast 2: Total Dose (mL): MEASUREMENTS (Male / Female) Normal Values 2D ECHO LV Diastolic Diameter PLAX 4.1 cm 4.2 - 5.9 / 3.9 - 5.3 cm LV Systolic Diameter PLAX 2.5 cm IVS Diastolic Thickness 1.1 cm 0.6 - 1.0 / 0.6 - 0.9 cm LVPW Diastolic Thickness 1.1 cm 0.6 - 1.0 / 0.6 - 0.9 cm LV Relative Wall Thickness 0.5 RV Internal Dim ED PLAX 2.7 cm LA Systolic Diameter LX 3.7 cm 3.0 - 4.0 / 2.7 - 3.8 cm LV Diastolic Volume MOD 4C 125.0 cm??? LV Systolic Volume MOD 4C 62.6 cm??? LV Ejection Fraction MOD 4C 49.9 % LV Diastolic Length 4C 8.2 cm LV Systolic Length 4C 6.7 cm LV Diastolic Volume MOD 2C 85.0 cm??? LV Systolic Volume MOD 2C 24.5 cm??? LV Ejection Fraction MOD 2C 71.2 % LV Diastolic Length 2C 7.6 cm LV Systolic Length 2C 5.9 cm LA Volume 46.9 cm??? 18 - 58 / 22 - 52 cm??? M-MODE Aortic Root Diameter MM 3.2 cm MV E Point Septal Separation 0.3 cm AV Cusp Separation MM 2.4 cm DOPPLER AV Peak Velocity 117.2 cm/s AV Peak Gradient 5.5 mmHg MV Area PHT 3.6 cm??? Mitral E Point Velocity 88.0 cm/s Mitral A Point Velocity 106.3 cm/s Mitral E to A Ratio 0.8 MV Deceleration Time 211.2 ms MV E' Velocity 5.5 cm/s Mitral E to MV E' Ratio 16.0 TR Peak Velocity 288.3 cm/s TR Peak Gradient 33.2 mmHg Right Ventricular Systolic Press 37.9 mmHg FINDINGS Left Ventricle Left ventricular ejection fraction is estimated at 60-65 %. Left ventricular cavity size normal. Borderline left ventricular hypertrophy. Right Ventricle Normal right ventricular size and function. Mild pulmonary hypertension. Right Atrium Normal right atrial size. Left Atrium Mitral Valve Structurally normal mitral valve. No evidence for mitral valve prolapse. Trace mitral regurgitation. Aortic Valve Aortic valve not well visualized. No aortic valve stenosis or regurgitation. Tricuspid Valve Mild tricuspid regurgitation. Pulmonic Valve Structurally normal pulmonic valve. Pericardium Normal pericardium. No pericardial effusion. Aorta Normal size aortic root and proximal ascending aorta. CONCLUSIONS Normal LV systolic function Previewed by: Dr. Crispin King MD (Electronically Signed) Final Date: 27 August 2022 16:54
== END | disposition home or self-care (01) ==
LOC: RADBDWWP 10:26
PROVIDERS: ATTEND Internal Medicine Hematology & Oncology
DX: Z01.818 Encounter for other preprocedural examination (principal); C50.412 Malignant neoplasm of upper-outer quadrant of left female breast; M85.89 Other specified disorders of bone density and structure, multiple sites
CPT/HCPCS: 77080; 93306

== ENCOUNTER 2022-09-02 06:21 | Day surgery (SDC) | payer MEDICARE, OTHER ==
[2022-08-25 23:13] LABS: Basophils # (A) 0.04 X 10*3/uL (0.00-0.10); Basophils % (A) 0.5 %; Eosinophils # (A) 0.16 X 10*3/uL (0.04-0.35); Eosinophils % (A) 2.1 %; HGB 12.3 g/dL (12.0-15.0); Immature Grans, Automated 0.3 %; Lymphocytes # (A) 0.96 X 10*3/uL (0.90-5.00); Lymphocytes % (A) 12.5 %; MCH 27.5 pg (27.0-32.0); MCHC 31.5 g/dL (32.0-37.0); MCV 87.1 fL (80.0-97.0); Mean Platelet Volume 10.1 fL (9.5-12.2); Monocytes # (A) 0.68 X 10*3/uL (0.20-1.00); Monocytes % (A) 8.8 %; NRBC Per 100 WBC 0 /100 WBCS (0.0-0.0); Neutrophils # (A) 5.83 X 10*3/uL (1.80-7.70); Neutrophils % (A) 75.8 %; Platelet Count 261 X 10*3/uL (140-440); RBC 4.48 X 10*6/uL (4.10-5.20); RDW 13.5 % (11.5-14.5); WBC 7.69 X 10*3/uL (4.50-10.00)
[2022-08-25 23:32] LABS: African American GFR (CKD) 98.9 (60.0-200.0); Anion Gap 10.7 mmol/L (10.00-18.00); Blood Urea Nitrogen 18.5 mg/dL (9.0-27.0); Carbon Dioxide 28.7 mmol/L (20.0-27.5); Non-African American GFR(CKD) 85.3 (60.0-200.0); Potassium 4.3 mmol/L (3.5-5.5)
--- NOTE | 2022-08-28 20:33 | HP ---
HISTORY AND PHYSICAL DATE OF SURGERY: September 02. HISTORY OF PRESENT ILLNESS: This is a 77-year-old female, who presented from Dr. Stevens regarding positive variation of the TNF gene, status post treatment for breast cancer, requesting vaginal hysterectomy for 15% to 20% chance of uterine cancer with this particular gene variation. She is menopausal, not sexually active, and without issues or complaints. She does, however, notice a bulge per the perineal body. PAST MEDICAL HISTORY: Significant for breast cancer, midline cystocele, and hypertension. She also complains of uterine prolapse. PAST SURGICAL HISTORY: Lumpectomy, 2021. CURRENT MEDICATIONS: 1. Baby aspirin daily. 2. Calcium with vitamin D supplement daily. 3. CoQ10 daily. 4. Glucosamine and chondroitin daily. 5. Letrozole 2.5 mg tablet daily. 6. Lexapro 5 mg daily. 7. Losartan/hydrochlorothiazide daily. 8. Metoprolol daily. 9. Restasis twice daily. 10.Simvastatin daily. 11.Vitamin D3 every other day. 12.Xanax p.r.n. ALLERGIES: None known. FAMILY HISTORY: Significant for colon cancer. REPRODUCTIVE HISTORY: Significant for vaginal deliveries x3, unremarkable. SOCIAL HISTORY: Social alcohol. 1 to 2 cups of coffee daily. She denies drug use. No smoking. PHYSICAL EXAMINATION: VITAL SIGNS: The patient is 5 feet 3 inches, 147 pounds, blood pressure 140/84, pulse 67. HEENT: Reveal good dentition. No thyromegaly. No cervical lymphadenopathy. Trachea midline. BREASTS: Exam reveals left breast with postsurgical changes. Right breast within normal limits with no nipple discharge, axillary adenopathy, or skin or glandular changes to palpation. CHEST: Clear to auscultation in all saenz anteriorly and posteriorly. CARDIAC: Reveals regular rate and rhythm with no murmur, click, or rub. ABDOMEN: Soft. Normal bowel sounds. No tenderness. No hepatosplenomegaly. No CVA tenderness. PELVIC: External genitalia are normal in appearance for age. There is a grade 3 cystocele molded with a small grade 1 to 2 uterine prolapse. Adnexa are negative to palpation bilaterally, small and nontender. RECTAL: Reveals sphincter tone normal. No hemorrhoids. FIT-negative stool. IMPRESSION: 1. 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 2. Symptomatic cystocele. Recommendation per oncologist for vaginal hysterectomy, bilateral salpingo-oophorectomy if possible. Cystocele repair will be performed concomitantly. PLAN: We will, therefore, proceed with vaginal hysterectomy, cystocele repair, BSO if feasible. The risks of surgery including bleeding, infection, perforation or damage to the bladder, bowels, ureters, all discussed. Risk of anesthesia, aspiration, nerve damage, or even also reviewed. Second opinion offered and declined. All questions answered. We will proceed with surgery at [facility] as above on 09/02/2022. MMODL / IJN: [id number] /
[2022-09-01 09:39] VITALS: BMI 26.5
[2022-09-02] MEDS ORDERED: ONDANSETRON 4 MG/2 ML VIAL IVP ONE (06:46)
[2022-09-02] MEDS ORDERED: DEXAMETHASONE SOD PHOSPHATE 4 MG/ML 1 ML VIAL IV ONE (06:46)
[2022-09-02] MEDS ORDERED: LIDOCAINE 1% (10MG/ML) FOR IV START INTRADERMA PRN (06:46)
[2022-09-02] MEDS ORDERED: HYDROmorphone 0.5 MG/0.5 ML SYRINGE IVP PRN (07:00)
[2022-09-02] MEDS: LACTATED RINGERS 1,000 ML IV SCH ×3 (07:18→11:53)
[2022-09-02] MEDS ORDERED: MIDAZOLAM 2 MG/2 ML VIAL ONE (08:21)
[2022-09-02] MEDS ORDERED: diphenhydrAMINE 50 MG/ML 1 ML VIAL ONE (08:21)
[2022-09-02] MEDS ORDERED: PROPOFOL 10 MG/ML 20 ML VIAL IV ONE (08:21)
[2022-09-02] MEDS ORDERED: MORPHINE SULFATE (PF) 0.3 MG/0.3 ML SYR ONE (08:21)
[2022-09-02] MEDS ORDERED: BACITRACIN ZINC 500 UNIT/GM OINT 28.4 GM TUBE TOPICAL ONE (08:54)
[2022-09-02] MEDS ORDERED: VASOPRESSIN 20 UNIT/ML 1 ML VIAL IM ONE (08:54)
[2022-09-02] MEDS ORDERED: KETOROLAC 15 MG/ML 1 ML VIAL IVP PRN (10:04)
[2022-09-02] MEDS ORDERED: ONDANSETRON 4 MG/2 ML VIAL IVP PRN (10:04)
[2022-09-02] MEDS ORDERED: IBUPROFEN 600 MG TAB PO PRN (10:04)
[2022-09-02] MEDS ORDERED: diphenhydrAMINE 50 MG/ML 1 ML VIAL IVP PRN (10:04)
[2022-09-02] MEDS ORDERED: METOCLOPRAMIDE 5 MG/ML 2 ML VIAL IVP PRN (10:04)
[2022-09-02] MEDS ORDERED: SIMETHICONE 80 MG CHEWABLE PO PRN (10:04)
--- NOTE | 2022-09-02 10:04 | P.OP ---
Date of Procedure: 09/02/22 Preoperative Diagnosis: Symptomatic cystocele and uterine prolapse Postoperative Diagnosis: Same, normal-appearing atrophic ovaries high in the pelvic sidewall bilaterally Procedure(s) Performed: Vaginal hysterectomy, anterior colporrhaphy Anesthesia: MARIA A Surgeon: Mariah Vang Production Control Manager #1: Maribel Solorio Estimated Blood Loss (ml): 50 IV fluids (ml): 400 Urine output (ml): 50 Pathology: other (Cervix and uterus) Condition: stable Disposition: PACU Operative Findings: Ovaries atrophic, high in the pelvic sidewalls bilaterally. Description of Procedure: Patient is brought to the operating suite where a spinal analgesia is administered without difficulty. She's placed in the dorsal lithotomy position. The cervix, vagina, perineal bodies are all prepped and draped in the usual sterile fashion. Antibiotics are given. VANDANA hose are applied. The appropriate timeout is performed to assure proper patient and procedural identification. The bladder is drained for approximately 50 mL of clear yellow urine. The weighted speculum was placed into the vagina. Anterior lip of the cervix is grasped with a double-tooth tenaculum. The cervix is injected circumferentially with a dilute Pitressin solution. A [place] blade scalpel is used circumferentially with a V positioning at 6:00. Sponge rolled finger is used to sweep the mucosa from the underlying fascial plane. Peritoneum is entered at 6:00 and suture tied with 2-0 Vicryl, held with a hemostat. The large billed speculum is then placed into the peritoneal cavity. At all times the mucosa is swept from the operative field to avoid bladder and/or ureteral injury. Uterosacral cardinal ligaments are identified, clamped cut and suture ligated, held with a hemostat laterally. Uterine vasculature is identified, clamped cut and suture ligated. 2 additional pedicles are taken superior to the vessels. The anterior peritoneum is entered at 12:00 carefully. The uterus is "walked out" posteriorly. Natali clamps are used across the final pedicles, uterus and cervix are removed with Sands scissors and sent to pathology. 0 Vicryl suture is used to secure the pedicles, they are flashed, tied, and retied for excellent hemostasis. A sponge stick is then used and both ovaries are visualized, very high, streaked week, atrophic appearing. They are left in situ secondary to difficulty in mobilization and normal appearance. Pedicles are all once again reexamined, clean and dry. The weighted speculum is changed to the small billed speculum. The 2-0 Vicryl suture is brought around in a pursestring fashion to close the peritoneum. Uterosacral cardinal ligament are brought across to incorporate the opposite ligament as well as mucosa. 2 additional [id number] sutures are used on the vaginal mucosa. The anterior repair is then started. The anterior vaginal mucosa is injected with the same dilute Pitressin solution. Metzenbaum scissors are used to undermine the mucosa in the midline, and the mucosa is opened and held in a fanlike fashion with Allis clamps. Sponge rolled finger is used to sweep the mucosa from the underlying fascial plane. Cabrera catheter is placed and urine is clean and dry. 2-0 Vicryl sutures used in an interrupted fashion to bring the fascial edges together in the midline completely reducing the cystocele. The redundant mucosa is trimmed with Metzenbaum scissors. The mucosa is then closed in a running locking fashion with 2-0 Vicryl. Vagina is clean and dry. Cabrera is noted to be draining clear urine. Vaginal vault is packed with one-inch iodophor gauze with basic tracing. Rectal exam reveals no defects. All sponge needle and enhancement counts are correct. Patient is brought back to recovery room in stable condition with stable vital signs.
[2022-09-02] MEDS ORDERED: ALPRAZolam 0.5 MG TAB PO PRN (21:49)
[2022-09-02] MEDS ORDERED: ALPRAZolam 0.25 MG TAB PO PRN (22:57)
--- NOTE | 2022-09-03 07:58 | P.DS ---
Providers Date of admission: 09/02/22 Expected date of discharge: 09/03/22 Attending physician: Mariah Vang Primary care physician: [facility] Hospital Course: This is a 77-year-old female who presented with a symptomatic cystocele, along w ith a gene mutation rendering her with a 20% chance of uterine cancer. Recommendation from oncologist Dr. Stevens was for hysterectomy. Please see dictated history and physical for details. Yesterday under my care she underwent a vaginal hysterectomy and a cystocele repair. Ovaries appeared high, atrophic, were left in situ. She did well intraoperatively, please see my dictated operative note for details. This morning the patient is doing well. Cabrera catheter and vaginal packing had been removed. Vital signs are stable and she has remained afebrile. Bladder training has commenced. Plan is for discharge home later today pending successful bladder training. Patient will follow-up with me in the office in 2 weeks. I have reminded her no intercourse, tampons or douching. She will use [id number] Advil or Aleve, Tylenol or Motrin as needed for pain. She will call with any difficulties with urination, with any vaginal bleeding, with any pain not alleviated by [id number] products, or indeed with any concerns. Assessment: Doing well postoperative day #1 Patient Condition at Discharge: Good Plan - Discharge Summary New Discharge Prescriptions: No Action Simvastatin [Zocor] 40 mg PO HS Cholecalciferol [Vitamin D3 (25 Mcg = 1000 Iu)] 3,000 unit PO DAILY ALPRAZolam [Xanax] 0.5 mg PO QAM PRN PRN Reason: Anxiety Letrozole [Femara] 2.5 mg PO DAILY Escitalopram [Lexapro] 10 mg PO QAM Herceptin Infusion 1 dose IV Q21D Metoprolol Succinate (ER) [Toprol Xl] 50 mg PO HS Losartan/Hydrochlorothiazide [Losartan-Hctz 100-25 mg Tab] 1 tab PO QAM Levomefolate Calcium [l-Methylfolate Calcium] 7.5 mg PO DAILY Discharge Medication List Cholecalciferol [Vitamin D3 (25 Mcg = 1000 Iu)] 3,000 unit PO DAILY 06/28/21 [History] Losartan/Hydrochlorothiazide [Losartan-Hctz 100-25 mg Tab] 1 tab PO QAM 06/28/21 [History] Metoprolol Succinate (ER) [Toprol Xl] 50 mg PO HS 06/28/21 [History] Simvastatin [Zocor] 40 mg PO HS 06/28/21 [History] ALPRAZolam [Xanax] 0.5 mg PO QAM PRN 01/09/22 [History] Escitalopram [Lexapro] 10 mg PO QAM 07/18/22 [History] Letrozole [Femara] 2.5 mg PO DAILY 07/18/22 [History] Levomefolate Calcium [l-Methylfolate Calcium] 7.5 mg PO DAILY 07/18/22 [History] Herceptin Infusion 1 dose IV Q21D 09/01/22 [History] Follow up Appointment(s)/Referral(s): Mariah Vang MD [STAFF PHYSICIAN] - 2 Weeks
[2022-09-03 09:13] VITALS: BP 128/62; PULSE 81; RESP 18; TEMP 98.6
[2022-09-03] MEDS ORDERED: ACETAMINOPHEN TAB 325 MG TAB PO PRN (10:05)
== END 2022-09-03 11:15 | disposition home or self-care (01) ==
LOC: OR 06:21 → 4FBP 09:34 → OR 09-03 11:15
PROVIDERS: ATTEND Obstetrics & Gynecology
DX: N81.4 Uterovaginal prolapse, unspecified (principal); I10 Essential (primary) hypertension; Z79.811 Long term (current) use of aromatase inhibitors; Z79.82 Long term (current) use of aspirin; Z85.3 Personal history of malignant neoplasm of breast
CPT/HCPCS: 86900; 86901; 80051; 82565; 84520; 85025; 86850; 87086; 93005; 58260; 57240; J1100; J0690; J2405; 88307

== ENCOUNTER → 2023-06-01 | Outpatient (CLI) | payer MEDICARE, OTHER ==
--- NOTE | 2023-06-01 13:17 | MR ---
EXAMINATION TYPE: MR brain wo/w con DATE OF EXAM: 06/01/2023 12:14 PM CLINICAL INDICATION:Female, 78 years old with history of C50.412 MALIG NEOPLASM OF UPPER-OUTER QUADRA NT OF; AMS, breast cancer. COMPARISON: None TECHNIQUE: Multi planar, multi sequence imaging was performed through the brain including: T1, T2, In version recovery, susceptibility weighted imaging and gradient echo imaging and Diffusion weighted im aging. The patient was then given intravenous contrast and multi planar, T1 fat-saturation images wer e obtained. IV Contrast: 7 cc Gadavist FINDINGS: Diffusion-weighted imaging shows no evidence of restricted diffusion to suggest acute/subacute infarc t. Ventricular dilation in proportion to cerebral atrophy. Intracranial arterial flow voids are maint ained. Midline structures show no abnormality. Scattered foci of high T2 signal intensity are seen wi thin the periventricular white matter. The susceptibility weighted demonstrate blooming artifact with in the left frontal/parietal region right frontal lobe compatible with microinfarcts. There is curvil inear blooming artifact within the left thalamus compatible with developmental venous anomaly. After administration of gadolinium, no abnormal enhancement is seen. The bone marrow signal is within normal limits. Paranasal sinuses and mastoid air cells: Trace left mastoid air cell effusion. Visualized orbits: Orbital contents are intact. IMPRESSION: 1. No evidence of intracranial mass, acute/subacute infarct, or abnormal enhancement. 2. Nonspecific white matter changes, likely related to small vessel ischemic disease 3. Left thalamus developmental venous anomaly.
== END | disposition home or self-care (01) ==
LOC: RADMRIMAIN 11:23
PROVIDERS: ATTEND Internal Medicine Hematology & Oncology
DX: C50.412 Malignant neoplasm of upper-outer quadrant of left female breast (principal); Q28.3 Other malformations of cerebral vessels; R90.82 White matter disease, unspecified; R41.82 Altered mental status, unspecified
CPT/HCPCS: 70553; A9585

== ENCOUNTER 2023-07-28 07:33 | Day surgery (SDC) | payer MEDICARE, OTHER ==
[2023-07-21 16:16] VITALS: BMI 26.5
[2023-07-28 08:07] VITALS: RESP 16; TEMP 98.3
[2023-07-28] MEDS ORDERED: LIDOCAINE 2% INJ 20 MG/ML (2 ML VIAL) ONE (08:22)
[2023-07-28] MEDS ORDERED: PROPOFOL 10 MG/ML 20 ML VIAL IV ONE (08:22)
--- NOTE | 2023-07-28 08:27 | P.GSHP ---
History of Present Illness H&P Date: 07/28/23 Chief Complaint: Colon cancer screening 78-year-old female here for colonoscopy. Patient has a mutation in the PMS gene. Patient's last colonoscopy one year ago. Patient with history of small polyps. No bowel complaints. Patient advised by oncology to have annual colono scopy. Past Medical History Past Medical History: Cancer, Hyperlipidemia, Hypertension Additional Past Medical History / Comment(s): squamous skin cancer, breast cancer 2021-surg, chemo & radiation, brain fog due to recent chemo, hx. colon polyps, has PMS2 gene History of Any Multi-Drug Resistant Organisms: None Reported Past Surgical History: Breast Surgery, Orthopedic Surgery Additional Past Surgical History / Comment(s): fallopian surgery for fertility, colonoscopy, ganglion cyst removed from wrist, left breast lumpectomy 2021 Past Anesthesia/Blood Transfusion Reactions: No Reported Reaction, Family History of Problems w/ Anesthesia Additional Past Anesthesia/Blood Transfusion Reaction / Comment(s): mother had some sort of problem during a surgery w/anesthesia Smoking Status: Never smoker - Past Family History Mother Family Medical History: No Reported History Father Family Medical History: Cancer Additional Family Medical History / Comment(s): prostate Medications and Allergies Home Medications Medication Instructions Recorded Confirmed Type Losartan/Hydrochlorothiazide 1 tab PO QAM 06/28/21 07/21/23 History [Losartan-Hctz 100-25 mg Tab] Metoprolol Succinate (ER) [Toprol 50 mg PO HS 06/28/21 07/21/23 History Xl] Simvastatin [Zocor] 40 mg PO HS 06/28/21 07/21/23 History ALPRAZolam [Xanax] 0.5 mg PO QAM PRN 01/09/22 07/21/23 History Escitalopram [Lexapro] 10 mg PO QAM 07/18/22 07/21/23 History Cholecalciferol (Vitamin D3) 1 tab PO DAILY 07/21/23 07/21/23 History [Vitamin D3 (50 Mcg = 2000 Iu) Chew Tab] Allergies Allergy/AdvReac Type Severity Reaction Status Date / Time No Known Allergies Allergy Verified 07/28/23 07:58 Surgical - Exam Vital Signs Temp Pulse Resp BP Pulse Ox 98.3 F 77 16 156/69 98 07/28/23 08:03 07/28/23 08:03 07/28/23 08:03 07/28/23 08:03 07/28/23 08:03 Physical exam: General: Well-developed, well-nourished HEENT: Normocephalic, sclerae nonicteric Abdomen: Nontender, nondistended Extremities: No edema Neuro: Alert and oriented Assessment and Plan (1) Colon cancer screening Narrative/Plan: Will proceed with colonoscopy at this time Current Visit: No Status: Acute Code(s): Z12.11 - ENCOUNTER FOR SCREENING FOR MALIGNANT NEOPLASM OF COLON SNOMED Code(s): 227775036
--- NOTE | 2023-07-28 08:38 | P.PCN ---
Date of Procedure: 07/28/23 Procedure(s) Performed: PREOPERATIVE DIAGNOSIS: Colon cancer screening, history of genetic mutation, history of polyps POSTOPERATIVE DIAGNOSIS: Mild diverticulosis PROCEDURE: Colonoscopy ANESTHESIA: MAC SURGEON: Cj Mckeon M.D. SPECIMENS: None ENDOSCOPIC PROCEDURE: The patient was placed on the endoscopy table in the left decubitus position. The Olympus colonoscope was inserted into the anus and passed under direct visualization to the base of the cecum. The appendiceal orifice was visualized. From that point the scope was slowly withdrawn inspecting all surfaces carefully. There were no neoplastic inflammatory or polypoid lesions throughout the cecum, ascending, transverse, descending, s igmoid and rectum. There was minimal left-sided diverticulosis noted. Digital rectal examination was normal. The patient was taken to the recovery room in stable condition per anesthesia guidelines. RECOMMENDATIONS: Resume diet. Repeat colonoscopy per oncology team.
[2023-07-28 09:04] VITALS: BP 149/67; PULSE 66
== END 2023-07-28 09:24 | disposition home or self-care (01) ==
LOC: ORWHC2ENDO 07:33
PROVIDERS: ATTEND Surgery
DX: Z12.11 Encounter for screening for malignant neoplasm of colon (principal); K57.30 Diverticulosis of large intestine without perforation or abscess without bleeding; I10 Essential (primary) hypertension; E78.5 Hyperlipidemia, unspecified; Z85.3 Personal history of malignant neoplasm of breast; Z85.828 Personal history of other malignant neoplasm of skin; Z86.010 Personal history of colon polyps; Z98.890 Other specified postprocedural states; Z79.899 Other long term (current) drug therapy
CPT/HCPCS: G0105; J2704; J2001

== ENCOUNTER → 2023-12-04 | Outpatient (CLI) | payer MEDICARE, OTHER ==
--- NOTE | 2023-12-04 13:32 | MM ---
Reason for Exam: Follow-up at short interval from prior study. Last screening mammogram was performed 12 month(s) ago. Patient History: Menarche at age 11. First Full-Term at age 23. Postmenopausal. Other cancer, age 63. Breast cancer, left, age 76. Patient used Estrogen for 10 years. 01/10/2022, Lumpectomy on the Left side. 01/10/2022, Malignant Core Biopsy on the left side. 12/18/2021, Malignant Core Biopsy on the left side. 2021, Chemotherapy. 2021, Radiation Therapy on the left side. Tissue Density: The breast tissue is heterogeneously dense. This may lower the sensitivity of mammography. Findings: Analyzed By CAD. No evidence for mass. Post lumpectomy and radiation therapy changes left breast. Benign calcifications redemonstrated. Overall Assessment: Benign, BI-RAD 2 Management: Screening Mammogram of both breasts in 1 year. . Results were given to the patient verbally at the time of exam. Patient should continue monthly self-breast exams. A clinical breast exam by your physician is recommended on an annual basis. This exam should not preclude additional follow-up of suspicious palpable abnormalities. Note on Ceci scores and lifetime risk: 1. A Ceci score greater than 3% is considered moderate risk. If this is the case, consider specialist referral to assess eligibility for a risk reducing agent. 2. If overall lifetime risk for the development of breast cancer is 20% or higher, the patient may qualify for future screening with alternating mammogram and breast MRI. Electronically signed and approved by: Chase Strickland M.D. Radiolog[facility]
== END | disposition home or self-care (01) ==
LOC: RADMAMWWP 13:10
PROVIDERS: ATTEND Radiology Radiation Oncology
DX: C50.512 Malignant neoplasm of lower-outer quadrant of left female breast (principal); Z92.21 Personal history of antineoplastic chemotherapy; Z79.899 Other long term (current) drug therapy; Z17.0 Estrogen receptor positive status [ER+]
CPT/HCPCS: 77066; G0279; 77062